=== PATIENT | male | born 1950 | race African-American/Black ===

== ENCOUNTER 2017-07-07 07:03 | Day surgery (SDC) | payer BC, OTHER | END 2017-07-07 11:00 | disposition home or self-care (01) | LOC: OR 07:03 | PROC: 08BTXZZ Excision of Left Conjunctiva, External Approach (ICD-10-PCS; principal; 2017-07-07) | DX: H11.022 Central pterygium of left eye (principal) | CPT/HCPCS: 65420; J2001; J2250; J2704 ==